=== PATIENT | female | born 1980 | race Caucasian/White ===

== ENCOUNTER → 2023-05-22 15:17 | Outpatient (BNVA) | payer MEDICAID, SELFPAY | PROVIDERS: PCP Obstetrics & Gynecology; Visit Provider Nurse Practitioner Psychiatric/Mental Health | DX: Z03.89 Encounter for observation for other suspected diseases and conditions ruled out (principal); Z79.899 Other long term (current) drug therapy | CPT/HCPCS: 80306 ==

== ENCOUNTER → 2023-07-04 08:04 | Outpatient (BNVA) | payer MEDICAID, SELFPAY | PROVIDERS: PCP Obstetrics & Gynecology; Referring Provider Nurse Practitioner Psychiatric/Mental Health; Visit Provider Internal Medicine Cardiovascular Disease | DX: Z03.89 Encounter for observation for other suspected diseases and conditions ruled out (principal) | CPT/HCPCS: 93005 ==

== ENCOUNTER 2023-08-18 15:47 | Outpatient (CLI) | payer MEDICAID, SELFPAY ==
--- NOTE | 2023-08-18 16:07 | XR_ITS ---
WS: [id number] XR chest 2V* [id number] REASON FOR EXAM: Bronchitits FINDINGS: The heart and the mediastinum are within normal limits. There is calcified granulomatous disease in both hemithoraces. No acute pulmonary parenchymal or pleural abnormality is identified. Mild thoracic scoliosis with mild degenerative spondylosis in the thoracic spine. IMPRESSION: No acute/subacute chest abnormality.
== END 2023-08-18 15:48 | disposition home or self-care (01) ==
LOC: RAD 15:50
PROVIDERS: PCP Obstetrics & Gynecology; Visit Provider Nurse Practitioner Family
DX: J40 Bronchitis, not specified as acute or chronic (principal)
CPT/HCPCS: 71046

== ENCOUNTER 2023-10-16 09:20 | Outpatient (CLI) | payer MEDICAID, SELFPAY ==
--- NOTE | 2023-10-16 09:36 | XRR_ITS ---
PROCEDURE INFORMATION: Exam: XR Right Shoulder Exam date and time: 10/16/2023 9:48 AM Age: 42 years old Clinical indication: Pain; Shoulder; Right; Additional info: Pain in R shoulder TECHNIQUE: Imaging protocol: Radiologic exam of the right shoulder. Views: 2 or more views. COMPARISON: CR XR chest 2V* [id number] 08/18/2023 4:12 PM FINDINGS: Bones/joints: Normal. No fracture or dislocation. No significant arthritic changes. Soft tissues: Normal. XR/XR shoulder RT min 2V* [id number] IMPRESSION: No acute findings.
== END 2023-10-16 09:21 | disposition home or self-care (01) ==
LOC: RAD 09:23
PROVIDERS: PCP Obstetrics & Gynecology; Visit Provider Nurse Practitioner Family
DX: M25.511 Pain in right shoulder (principal)
CPT/HCPCS: 73030

== ENCOUNTER 2023-10-27 11:26 | Outpatient (CLI) | payer MEDICAID, SELFPAY ==
--- NOTE | 2023-10-27 11:31 | MM_ITS ---
WS: [id number] BILATERAL 3D TOMOSYNTHESIS DIGITAL SCREENING MAMMOGRAPHY WITH CAD CLINICAL INFORMATION: SCREENING HISTORY: Screening mammogram. No current complaints. COMPARISON: Baseline TECHNIQUE: Bilateral CC and MLO views. FINDINGS: Scattered fibroglandular densities bilaterally. No suspicious focal mass, asymmetry, calcifications, or architectural distortion. No evidence of malignancy. Incidental punctate calcifications. IMPRESSION: MM/[place] [id number] BI-RADS: 2-Benign FOLLOW UP: 1 Year Follow-up Recommend return to annual screening mammography.
== END 2023-10-27 11:27 | disposition home or self-care (01) ==
LOC: RAD 11:27
PROVIDERS: PCP Obstetrics & Gynecology; Visit Provider Family Medicine
DX: Z12.31 Encounter for screening mammogram for malignant neoplasm of breast (principal)
CPT/HCPCS: 77063; 77067

== ENCOUNTER → 2023-11-07 12:25 | Outpatient (BNVA) | payer MEDICAID, SELFPAY | PROVIDERS: PCP Obstetrics & Gynecology; Visit Provider Internal Medicine | DX: R07.9 Chest pain, unspecified (principal) | CPT/HCPCS: 93005 ==

== ENCOUNTER 2023-11-13 13:08 | Outpatient (CLI) | payer MEDICAID, SELFPAY ==
--- NOTE | 2023-11-13 13:11 | CT_ITS ---
WS: [id number] CT chest wo con [id number] HISTORY: LUNG NODULE TECHNIQUE: Axial imaging performed through the thorax. Coronal and sagittal reformats are submitted. All CT scans at [facility] use at least one of these dose optimization techniques: automated exposure control; mA and/or kV adjustment per patient size (includes targeted exams where dose is mat ched to clinical indication); or iterative reconstruction. CONTRAST: None DLP: 497.71 mGy.cm COMPARISON: 11/05/2014 Lungs and central airway: Micronodule LEFT upper lobe was also present in 2014. No suspicious masses or pneumonia. Pleura: Normal. No pleural effusion. Heart and pericardium: Normal size heart with no pericardial effusion. Mediastinum and jose g: No mediastinum or hilar adenopathy. Vessels: Pulmonary arteries greater diameter than the aorta. Chest wall and lower neck: No soft tissue masses. Upper abdomen: Prior cholecystectomy. Osseous structures: Mild increase in thoracic kyphosis. Mild thoracic spondylosis. IMPRESSION: 1. Stable chest CT since 11/05/2014. Micronodule in the LEFT upper lobe is unchanged. 2. No mass or pneumonia. 3. No adenopathy. 4. Very mild pulmonary hypertension. 5. Prior cholecystectomy.
== END 2023-11-13 13:09 | disposition home or self-care (01) ==
LOC: RAD 13:08
PROVIDERS: PCP Obstetrics & Gynecology; Visit Provider Family Medicine
DX: R91.8 Other nonspecific abnormal finding of lung field (principal); I27.20 Pulmonary hypertension, unspecified
CPT/HCPCS: 71250

== ENCOUNTER → 2023-11-21 10:37 | Outpatient (BNVA) | payer MEDICAID, SELFPAY | PROVIDERS: PCP Obstetrics & Gynecology; Referring Provider Family Medicine; Visit Provider Physician Assistant | DX: M25.511 Pain in right shoulder (principal); M75.41 Impingement syndrome of right shoulder | CPT/HCPCS: 73030 ==

== ENCOUNTER 2023-11-29 11:51 | Outpatient (CLI) | payer MEDICAID, SELFPAY ==
--- NOTE | 2023-11-29 11:55 | USCV_ITS ---
Barber Gilda Age: 43 Gender: F : 1980 Exam Date: 11/29/2023 12:06 Ordering Phys: Santo Eden M.D ([email or web address]) Technologist: Exam Location: [facility] [place] Indication: sob BP: 117 / 72 HR: 148 Rhythm: Sinus Technical Quality: MEASUREMENTS (Male / Female) Normal Values 2D ECHO LV Diastolic Diameter PLAX 3.6 cm 4.2 - 5.9 / 3.9 - 5.3 cm IVS Diastolic Thickness 1.3 cm 0.6 - 1.0 / 0.6 - 0.9 cm IVS Systolic Thickness 1.7 cm LVPW Diastolic Thickness 1.1 cm 0.6 - 1.0 / 0.6 - 0.9 cm LVPW Systolic Thickness 1.5 cm LVOT Diameter 2.0 cm LV Ejection Fraction 2D Teich 58.1 % LV Ejection Fraction MOD 2C 60.5 % LV Ejection Fraction 2C AL 60.7 % LA Diameter 2.9 cm LA Sys Volume AL 37.8 cm cubed LA Sys Volume Index AL 17.7 cm cubed/m squared Aorta at Sinotubular Diameter 2.2 cm IVC Diameter 2.0 cm M-MODE LA Ao Ratio MM 1.3 AV Cusp Separation MM 2.5 cm DOPPLER AV Peak Velocity 114.0 cm/s AV Area Cont Eq vti 2.9 cm squared AV Area Cont Eq pk 3.1 cm squared MV Peak Velocity 95.0 cm/s MV Area PHT 4.7 cm squared Mitral E to A Ratio 1.1 TV Peak Velocity 216.5 cm/s TR Peak Velocity 269.0 cm/s TR Peak Gradient 28.9 mmHg TV Peak E Velocity 89.0 cm/s Right Atrial Pressure 3.0 mmHg Pulmonary Artery Systolic Pressu 31.9 mmHg PV Peak Velocity 88.0 cm/s FINDINGS Left Ventricle Left ventricle is normal in size. LV systolic function is normal with EF of 55 to 60%. No regional wall motion abnormalities are seen. Right Ventricle Normal in size and function Right Atrium Normal in size. Left Atrium Normal in size Mitral Valve Structurally normal mitral valve.Trace mitral regurgitation Aortic Valve Structurally normal aortic valve. No significant stenosis or regurgitation. Tricuspid Valve Mild tricuspid regurgitation. RVSP is normal. Pulmonic Valve Trace pulmonic regurgitation. Pericardium Normal Aorta Normal in size IVC Appears to be normal CONCLUSIONS LV systolic function is normal with EF 55 to 60%. Trace mitral regurgitation. Mild tricuspid regurgitation Trace pulmonic regurgitation. Santo Eden MD (Electronically Signed) Final Date: 13 Dec 2023 13:58 S
[2023-11-29] MEDS: perflutren protein-a microsphr 0.22 mg/mL SDV 3 mL IV (12:38)
== END 2023-11-29 11:52 | disposition home or self-care (01) ==
LOC: RAD 11:51
PROVIDERS: PCP Obstetrics & Gynecology; Visit Provider Internal Medicine
DX: R07.9 Chest pain, unspecified (principal); R06.02 Shortness of breath; I07.1 Rheumatic tricuspid insufficiency
CPT/HCPCS: C8929; Q9956

== ENCOUNTER → 2024-02-27 18:18 | Outpatient (BNVA) | payer MEDICAID, SELFPAY | PROVIDERS: PCP Obstetrics & Gynecology; Visit Provider Emergency Medicine | DX: N39.0 Urinary tract infection, site not specified (principal); R30.9 Painful micturition, unspecified | CPT/HCPCS: 81000; 87086 ==

== ENCOUNTER 2024-12-20 12:37 | Outpatient (CLI) | payer MEDICAID, SELFPAY ==
--- NOTE | 2024-12-20 | MM_ITS ---
WS: [id number] BILATERAL 3D TOMOSYNTHESIS DIGITAL SCREENING MAMMOGRAPHY WITH CAD CLINICAL INFORMATION: ANNUAL SCREENING HISTORY: Screening mammogram. No current complaints. COMPARISON: 2023 TECHNIQUE: Bilateral CC and MLO views. FINDINGS: Scattered fibroglandular densities bilaterally. No suspicious focal mass, asymmetry, calcifications, or architectural distortion. No evidence of malignancy. Incidental punctate calcifications LEFT breast. MM/MM scr BI tomosynthesis [id number] IMPRESSION: DENSITY: There are scattered areas of fibroglandular density. BI-RADS: 2 - Benign. FOLLOW UP: 1 Year Follow-up Recommend return to annual screening mammography.
== END 2024-12-20 12:38 | disposition home or self-care (01) ==
LOC: RAD 12:38
PROVIDERS: PCP Obstetrics & Gynecology; Visit Provider Family Medicine
DX: Z12.31 Encounter for screening mammogram for malignant neoplasm of breast (principal); R92.323 Mammographic fibroglandular density, bilateral breasts; R92.1 Mammographic calcification found on diagnostic imaging of breast
CPT/HCPCS: 77063; 77067

== ENCOUNTER 2025-05-15 14:17 | Emergency (ER) | payer MEDICAID, SELFPAY ==
[2025-05-15 14:18] VITALS: BP 143/86; PULSE 140; RESP 24; TEMP 36.7; O2SAT 100
--- NOTE | 2025-05-15 14:36 | ED_ITS ---
HPI - Arrhythmia/Palpitations 2 General: Chief Complaint: Arrhythmia/Palpitations Stated Complaint: dizzy / high hr/ chest pressure Time Seen by Provider: 05/15/25 14:24 History of Present Illness: Patient is a 44-year-old female with history of sinus tachycardia, anxiety, presents to the emergency room due to chest pressure and palpitations. Patient states this started at noon today. She was sitting on her couch. This is central to left side of her chest without radiation. She feels a synthetic anxiety. She does feel as if she is in palpitations. This has continued through now. Patient had to Dr. Coello this morning. She states that is her typical caffeine intake. No recent cold or illness. No history atrial fibrillation. History of post hysterectomy DVT, according to patient. Associated symptoms: Reports anxiety and nausea; Deny vomiting Related Data Home Medications ?Medication ?Instructions ?Recorded ?Confirmed tirzepatide 15 mg/0.5 mL 10 mg SUBCUT Q7D 02/27/24 subcutaneous pen injector (Deepak) bupropion HCl 450 mg 24 hr tablet, 450 mg PO BEDTIME 1 05/15/25 extended release buspirone 5 mg tablet 5 mg PO BEDTIME 05/15/25 rosuvastatin 40 mg tablet 40 mg PO BEDTIME 05/15/25 Previous Rx's ?Medication ?Instructions ?Recorded diltiazem HCl 180 mg 180 mg PO Q24H #30 caps 04/24 10/15 capsule,extended release 24 hr (Cardizem CD) Allergies Allergy/AdvReac Type Severity Reaction Status Date / Time Penicillins Allergy Unknown Verified 05/06/25 12:06 sumatriptan Allergy Unknown Verified 05/06/25 12:06 Review of Systems 2 General: Reports: 10 or more systems reviewed and unremarkable except in HPI and below Const: Denies: fever(s) or chills Eyes: Denies: change in vision or blurry vision ENMT: Denies: throat pain, nasal obstruction or post nasal drip Card: Reports: chest pain, palpitations, lightheadedness and dyspnea on exertion; Denies: irregular heart rhythm or swelling of feet/ankles Resp: Reports: dyspnea and non-productive cough GI: Reports: nausea; Denies: abdominal pain or vomiting : Denies: flank pain or difficulty voiding Musc: Denies: neck pain or extremity pain Skin/Breast: Denies: rash or pruritus Neuro: Denies: headache(s) or numbness in extremities Psych: Reports: anxiety; Denies: depression Endo: Denies: polyuria or polydipsia PFSH ED 2 PFSH: Social History Smoking and tobacco/nicotine status: never used tobacco/nicotine Physical Exam 2 Const: COMMON NORMALS: no acute distress, average body habitus, patient oriented x3 and no limitations HENMT: COMMON NORMALS: normocephalic, atraumatic, hearing grossly normal bilaterally and TM's normal bilaterally HEAD & SCALP: normocephalic and atraumatic HEAD IMAGES: 1. Small superficial redness TYMPANIC MEMBRANE: TM's normal bilaterally Neck/C-Spine: COMMON NORMALS: full ROM, no lymphadenopathy, supple, no meningeal signs, no JVD and Thyroid normal GENERAL: Yes normal visual inspection, Yes trachea midline, No anterior neck swelling and No lymphadenopathy THYROID: Thyroid normal CAROTIDS: Yes normal carotid upstroke and Yes bounding pulses CERVICAL SPINE: Yes cervical ROM normal and Yes normal cervical lordosis Chest: COMMONS NORMALS: normal inspection of the chest and normal palpation of entire chest wall Resp: COMMON NORMALS: normal respiratory effort, No retractions, No use of accessory muscles, clear to auscultation bilaterally and percussion normal A USCULTATION: clear to auscultation bilaterally PERCUSSION: percussion normal Cardio: COMMON NORMALS: no JVD, regular rhythm, S1 normal heart sound present, S2 normal heart sound present, No gallops present (Cardio), No clicks present (Cardio), No murmurs present (Cardio), No rub (Cardio) and Peripheral pulses 2+ throughout RATE: tachycardic RHYTHM: regular rhythm HEART SOUNDS: S1 normal heart sound present and S2 normal heart sound present PERIPHERAL PULSES: Peripheral pulses 2+ throughout GI: COMMON NORMALS: Normal to inspection, nondistended, normoactive bowel sounds present, Soft to palpation, non-tender and No hepatosplenomegaly present PALPATION: Yes Soft to palpation and Yes No hepatosplenomegaly present : COMMON NORMALS: Yes no CVA tenderness BLADDER/KIDNEY EXAM: Yes no CVA tenderness Back/Pelvis: COMMON NORMALS: no CVA tenderness Extremity: COMMON NORMALS: normal to inspection, full ROM and capillary refill normal Neuro: COMMON NORMALS: patient oriented x3 MENINGEAL SIGNS: Yes no meningeal signs Psych: COMMON NORMALS: mental status grossly normal and Normal thought process present THOUGHT PROCESS: Normal thought process present Course 2 Reevaluation(s): Reevaluation #1: Heart rate still 120s after Cardizem IV push and p.o. Patient remains anxious. Ativan given. Reevaluation #2: Heart rate 110 after Ativan. Vital Signs: Vital signs: Vital Signs Temperature 98.0 F 05/15/25 14:18 Pulse Rate 112 H 05/15/25 16:40 Respiratory Rate 16 05/15/25 16:40 Blood Pressure 112/73 05/15/25 16:40 Pulse Oximetry 100 05/15/25 16:40 Oxygen Delivery Me thod Room Air 05/15/25 14:51 MDM - Arrhythmia/Palpitations Medical Decision Making Patient is a 44-year-old female with history of sinus tachycardia, had abrupt onset of palpitations and chest pressure at noon today. She was at rest when this occurred. This has continued until presentation. She has a history of DVT after hysterectomy. Will check routine labs, cardiac rule out, D-dimer, TSH, magnesium. She will receive Cardizem IV push and p.o. to see if she has improvement of her sinus tachycardia. EKG was reviewed and does not show any ST segment elevation. TSH, D-dimer, magnesium, troponin, electrolytes are all appropriate. CBC indicates normal WBC with higher side hemoglobin at 16.3. 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 Will give 1 L of LR bolus. Her heart score is 0. She is ruled out from pulmonary embolism standpoint. Will treat with 1 L of fluid, and sent home with Cardizem CD, with close follow-up with cardiology. Medical Records I reviewed the patient's medical records. Lab Data I reviewed the patient's lab results. 05/15/25 14:35 05/15/25 14:35 Radiology Impressions Chest X-Ray 05/15/25 14:36 Impression: Negative chest. Laboratory Results WBC 5.19 10^3/uL (3.29-11.43) 05/15/25 14:35 RBC 5.36 10^6/uL (3.85-5.65) 05/15/25 14:35 Hgb 16.30 g/dL (11.27-16.99) 05/15/25 14:35 Hct 45.8 % (36-47) 05/15/25 14:35 MCV 85.4 fl (85-98) 05/15/25 14:35 MCH 30.4 pg (27-33) 05/15/25 14:35 MCHC 35.6 g/dL (30-55) 05/15/25 14:35 RDW 11.9 % (12.1-15.1) L 05/15/25 14:35 Plt Count 237 10^3/cmm (157-399) 05/15/25 14:35 MPV 9.0 fL (7.4-10.4) 05/15/25 14:35 Neut % (Auto) 68.3 % 05/15/25 14:35 Lymph % (Auto) 26.0 % 05/15/25 14:35 Tillman % (Auto) 3.9 % 05/15/25 14:35 Eos % (Auto) 1.2 % 05/15/25 14:35 Baso % (Auto) 0.4 % 05/15/25 14:35 Neut # (Auto) 3.55 10^3/uL (1.8-7.7) 05/15/25 14:35 Lymph # (Auto) 1.4 10^3/uL (0.8-4.8) 05/15/25 14:35 Tillman # (Auto) 0.2 10^3/uL (0.2-0.9) 05/15/25 14:35 Eos # (Auto) 0.1 10^3/uL (0.0-0.8) 05/15/25 14:35 Baso # (Auto) 0.0 10^3/uL (0.0-0.1) 05/15/25 14:35 Nucleated RBC % (auto) 0 % 05/15/25 14:35 Nucleated RBCs # 0.0 /100WBC 05/15/25 14:35 D-Dimer <= 0.27 ug/mLFEU (0-0.59) 05/15/25 14:35 Sodium 140 mmol/L (136-145) 05/15/25 14:35 Potassium 4.0 mmol/L (3.5-5.1) 05/15/25 14:35 Chloride 102 mmol/L (98-107) 05/15/25 14:35 Carbon Dioxide 23 mmol/L (22-29) 05/15/25 14:35 Anion Gap 19.0 (5-19) 05/15/25 14:35 BUN 6 mg/dL (6-20) 05/15/25 14:35 Creatinine 0.7 mg/dL (0.5-0.9) 05/15/25 14:35 GFR Calculation 91.3 mL/min (90-130) 05/15/25 14:35 Glucose 102 mg/dL (65-115) 05/15/25 14:35 Calculated Osmolality 288 mOsm/kg (285-295) 05/15/25 14:35 Calcium 9.5 mg/dL (8.5-10.5) 05/15/25 14:35 Magnesium 2.1 mg/dL (1.7-2.3) 05/15/25 14:35 Total Bilirubin 0.3 mg/dL (0.15-1.2) 05/15/25 14:35 AST 16 U/L (0-32) 05/15/25 14:35 ALT 17 U/L (0-33) 05/15/25 14:35 Alkaline Phosphatase 94 U/L (35-105) 05/15/25 14:35 Troponin T Baseline < 6 ng/L (0-10) 05/15/25 14:35 NT-Pro-B Natriuret Pep < 36 pg/mL (0-125) 05/15/25 14:35 Total Protein 6.5 g/dL (6.6-8.7) L 05/15/25 14:35 Albumin 4.7 g/dL (3.5-5.2) 05/15/25 14:35 Globulin 1.8 g/dL (1.3-4.6) 05/15/25 14:35 TSH 1.60 uIU/mL (0.27-4.20) 05/15/25 14:35 Ethyl Alcohol < 10 mg/dL (0-10) 05/15/25 14:35 All radiology interpretation(s) finalized by discharge EKG Data EKG 1: Interpretation: Sinus tachycardia rate of 140, QTc 410 MS Other EKG comments: Chest X-Ray 05/15/25 14:36 Impression: Negative chest. EKG 2: Interpretation: Sinus tachycardia with rate of 107. No ST segment elevation. QTc 373. Other EKG comments: Chest X-Ray 05/15/25 14:36 Impression: Negative chest. Discharge Plan Discharge Patient Disposition: Home Clinical Impression: Supraventricular tachycardia Condition: Stable Prescriptions: New diltiazem HCl [Cardizem CD] 180 mg capsule,extended release 24hr 180 mg PO Q24H Qty: 30 0RF No Action Mounjaro 15 mg/0.5 mL pen injector 10 mg SUBCUT Q7D buspirone 5 mg tablet 5 mg PO BEDTIME rosuvastatin 40 mg tablet 40 mg PO BEDTIME bupropion HCl 450 mg tablet extended release 24 hr 450 mg PO BEDTIME Discharge Orders: Discharge ED (Routine); Ordered 05/15/25 Ordered By: Rosalia Jones Referrals: Damaris Meraz MD [Physician, Cardiology] - 4-7 days Tatianna Fuchs DO [Primary Care Provider, DIRECTOR OF GIFT PLANNING] Discharge Diet: Low Salt Discharge Activity: Limit activity as instructed Patient Instructions: Supraventricular Tachycardia (ED), DASH Eating Plan (ED), Patient Portal & Emerson Instructions Activity Restrictions/Additional Instructions: - No caffeine - Follow-up with cardiology. Referral was made to Dr. Meraz - Your Cardizem CD was sent to the pharmacy. 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 - Take your blood pressure and heart rate in the morning daily 1 time. Put it on a log in your phone or on paper. Make sure your blood pressure is greater than 110 on the top number before you take your Cardizem CD, and your heart rate is greater than 65. If it is not, wait 3 hours, and repeat this process. - Drink the recommended 60-64 ounces of noncaffeinated beverages daily - Return to ED if this occurs again. Thank you for choosing [facility] for your healthcare needs today. You have been screened and evaluated and felt safe for discharge. Health conditions do change or evolve sometimes and as such it is important that you follow up with your Primary Doctor to be re checked, 3-5 days is a general good time frame for follow up. You are always welcome to return to the ED for re assessment if your symptoms are worsening or you have new concerns Stand Alone Forms: Work/School Release Print Language: Salvadorean Coding Level of Care Code ED Pathology Laboratory Aides Teacher for Heidy Molina
--- NOTE | 2025-05-15 14:36 | XR_ITS ---
WS: [id number] Portable AP upright chest, 05/15/2025 Clinical Data: chest pain Comparison: Two-view chest, 08/18/2023 Findings: No nodules, masses or effusions are seen. The heart is normal. The pulmonary vascularity is not increased. No pneumonia or pneumothorax is seen. Monitor leads are on the chest wall. XR/XR chest 1V portable [id number] Impression: Negative chest.
--- NOTE | 2025-05-15 14:36 | ECG_ITS ---
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 Measurements Intervals [place] Rate: 140 P: 70 [place]: 142 QRS: 90 QRSD: 80 T: 65 QT: 329 QTc: 503 Interpretive Statements SINUS TACHYCARDIA, POSSIBLE ATRIAL FLUTTER LOW QRS VOLTAGE IN PRECORDIAL LEADS [QRS DEFLECTION < 1.0 mV IN CHEST LEADS] NONSPECIFIC ST & T-WAVE ABNORMALITY ABNORMAL RHYTHM ECG Compared to ECG 11/07/2023 12:32:39 T-wave abnormality now present Sinus rhythm no longer present Electronically Signed On 05-16-2025 15:25:05 CDT by Damaris Meraz M.D. [id number]
[2025-05-15 14:40] VITALS: BP 143/86; PULSE 131; RESP 25; O2SAT 100
[2025-05-15 14:48] LABS: Hematocrit 45.8 % (36-47); Hemoglobin 16.30 g/dL (11.27-16.99); Mean Corpuscular HGB Conc 35.6 g/dL (30-55); Mean Corpuscular Hemoglobin 30.4 pg (27-33); Mean Corpuscular Volume 85.4 fl (85-98); Nucleated Red Blood Cells % 0 %; Platelet Count 237 10^3/cmm (157-399); Red Blood Count 5.36 10^6/uL (3.85-5.65); White Blood Count 5.19 10^3/uL (3.29-11.43)
[2025-05-15] MEDS: dilTIAZem 5 mg/mL SDV 5 mL 10 MG IVP (14:50)
[2025-05-15 14:51] VITALS: BP 131/88; PULSE 133; RESP 24; O2SAT 100
[2025-05-15] MEDS: ondansetron hcl ODT 4 mg Tab PO (15:02)
[2025-05-15] MEDS: LORazepam 1 MG/0.5 ML injection IVP (15:02)
[2025-05-15 15:06] LABS: Troponin(5th) Baseline < 6 ng/L (0-10)
[2025-05-15 15:17] LABS: Alanine Aminotransferase 17 U/L (0-33); Albumin Level 4.7 g/dL (3.5-5.2); Alkaline Phosphatase 94 U/L (35-105); Anion Gap 19.0 (5-19); Aspartate Amino Transferase 16 U/L (0-32); Blood Urea Nitrogen 6 mg/dL (6-20); Calcium 9.5 mg/dL (8.5-10.5); Carbon Dioxide 23 mmol/L (22-29); Chloride 102 mmol/L (98-107); Globulin 1.8 g/dL (1.3-4.6); Glucose 102 mg/dL (65-115); Magnesium 2.1 mg/dL (1.7-2.3); NT Pro B Type Natriuretic Pept < 36 pg/mL (0-125); Osmolality Calculated 288 mOsm/kg (285-295); Potassium 4.0 mmol/L (3.5-5.1); Sodium 140 mmol/L (136-145); Thyroid Stimulating Hormone 1.60 uIU/mL (0.27-4.20); Total Protein 6.5 g/dL (6.6-8.7)
[2025-05-15 15:19] LABS: Alcohol Level < 10 mg/dL (0-10)
--- NOTE | 2025-05-15 15:32 | ECG_ITS ---
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 Measurements Intervals [place] Rate: 107 P: 53 [place]: 163 QRS: 82 QRSD: 80 T: 58 QT: 311 QTc: 415 Interpretive Statements SINUS TACHYCARDIA LOW QRS VOLTAGE IN PRECORDIAL LEADS [QRS DEFLECTION < 1.0 mV IN CHEST LEADS] ABNORMAL RHYTHM ECG Compared to ECG 11/05/2014 16:11:46 Low QRS voltage now present Electronically Signed On 05-16-2025 15:27:14 CDT by Damaris Meraz M.D. [id number]
[2025-05-15 16:40] VITALS: BP 112/73; PULSE 112; RESP 16; O2SAT 100
== END 2025-05-15 16:42 | disposition home or self-care (01) ==
PROVIDERS: Emergency Provider Physician Assistant; PCP Family Medicine
DX: I47.10 Supraventricular tachycardia, unspecified (principal)
CPT/HCPCS: 36415; 71045; 80053; 80307; 83735; 83880; 84443; 84484; 85025; 85378; 93005; 96374; 96375; 99285; J2060; J3490; J7120; J9999; Q0162

== ENCOUNTER 2025-05-18 12:25 | Emergency (ER) | payer MEDICAID, SELFPAY ==
--- NOTE | 2025-05-18 12:31 | PC.NURSE ---
called patient for triage--in bathroom at 1230
--- NOTE | 2025-05-18 12:33 | XRR_ITS ---
PROCEDURE INFORMATION: Exam: XR Chest Exam date and time: 05/18/2025 1:55 PM Age: 44 years old Clinical indication: Pain; Chest pressure; Additional info: Cp TECHNIQUE: Imaging protocol: Radiologic exam of the chest. Views: 1 view. COMPARISON: CR XR chest 1V portable [id number] 05/15/2025 2:40 PM FINDINGS: Lungs: Unremarkable. No consolidation. Pleural spaces: Unremarkable. No pleural effusion. No pneumothorax. Heart/Mediastinum: Unremarkable. No cardiomegaly. Bones/joints: Mild degenerative disease of bilateral acromioclavicular joints. XR/XR chest 1V portable [id number] IMPRESSION: No acute cardiopulmonary process.
--- NOTE | 2025-05-18 12:33 | ECG_ITS ---
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1980 Requested By: Jason Leblanc Order Number: [id number] Reading MD: AMBER COLEMAN Measurements Intervals [place] Rate: 120 P: 64 [place]: 174 QRS: 77 QRSD: 83 T: 48 QT: 338 QTc: 479 Interpretive Statements SINUS TACHYCARDIA LOW QRS VOLTAGE IN PRECORDIAL LEADS [QRS DEFLECTION < 1.0 mV IN CHEST LEADS] MINIMAL ST DEPRESSION [0.025+ mV ST DEPRESSION] ABNORMAL RHYTHM ECG Compared to ECG 05/15/2025 14:22:06 ST (T wave) deviation now present T-wave abnormality no longer present Electronically Signed On 05-18-2025 22:24:12 CDT by AMBER COLEMAN [id number]
[2025-05-18 12:37] VITALS: BP 121/80; PULSE 120; RESP 18; TEMP 36.3; O2SAT 100
[2025-05-18 13:02] LABS: Hematocrit 43.6 % (36-47); Hemoglobin 15.10 g/dL (11.27-16.99); Mean Corpuscular HGB Conc 34.6 g/dL (30-55); Mean Corpuscular Hemoglobin 30.6 pg (27-33); Mean Corpuscular Volume 88.3 fl (85-98); Nucleated Red Blood Cells % 0 %; Platelet Count 208 10^3/cmm (157-399); Red Blood Count 4.94 10^6/uL (3.85-5.65); White Blood Count 5.61 10^3/uL (3.29-11.43)
[2025-05-18 13:19] LABS: Troponin(5th) Baseline < 6 ng/L (0-10)
[2025-05-18 13:25] LABS: Alanine Aminotransferase 13 U/L (0-33); Albumin Level 4.5 g/dL (3.5-5.2); Alkaline Phosphatase 87 U/L (35-105); Anion Gap 15.6 (5-19); Aspartate Amino Transferase 14 U/L (0-32); Blood Urea Nitrogen 9 mg/dL (6-20); Calcium 9.5 mg/dL (8.5-10.5); Carbon Dioxide 25 mmol/L (22-29); Chloride 104 mmol/L (98-107); Creatinine Clr Calc Pharmacy 80.4271; Globulin 1.6 g/dL (1.3-4.6); Glucose 104 mg/dL (65-115); Lipase 30 U/L (13-60); Osmolality Calculated 289 mOsm/kg (285-295); Potassium 4.6 mmol/L (3.5-5.1); Sodium 140 mmol/L (136-145); Total Protein 6.1 g/dL (6.6-8.7)
--- NOTE | 2025-05-18 13:51 | W.ED.GENADLT ---
HPI - General Adult General: Chief complaint: General Medical Stated complaint: chest pain Time Seen by Provider: 05/18/25 13:37 History of Present Illness: Patient is 44-year-old female that presents to the emergency room with palpitations. She was here 05/15 and diagnosed with supraventricular tachycardia. Part of the history on that day is her tirzepatide is causing her not to hardly eat. She never had palpitations like she did. She had elevated blood pressure during her stay at that time, improved with Cardizem, laboratory data was benign, and was sent home on Cardizem. Patient is taking Cardizem 180 mg CD x 1, on 05/15, and blood pressure on 05/16, and 05/17 was too low reporting systolic in the 90s, and did not tolerate Cardizem CD. She did take her Cardizem CD approximately 1 hour ago prior to arrival Patient did not eat today, wade, cereal, consumed 40 ounces of noncaffeinated beverages. She has not had any caffeine since she was here. She is following all of her instructions. She has lowered her tirzepatide dose to 7.5 mg weekly to help with the anorexia. She does have a question of her bupropion of 4 and 50 mg titration up, and buspirone added at 5 mg daily has caused the issue. Associated symptoms: Reports chest pain, dyspnea, nausea and palpitations; Deny headache(s), rash or vomiting Related Data Home Medications ?Medication ?Instructions ?Recorded ?Confirmed tirzepatide 15 mg/0.5 mL 10 mg SUBCUT Q7D 02/27/24 05/15/25 subcutaneous pen injector (Deepak) bupropion HCl 450 mg 24 hr tablet, 450 mg PO BEDTIME 05/15/25 05/15/25 extended release buspirone 5 mg tablet 5 mg PO BEDTIME 05/15/25 05/15/25 rosuvastatin 40 mg tablet 40 mg PO BEDTIME 05/15/25 05/15/25 Previous Rx's ?Medication ?Instructions ?Recorded diltiazem HCl 180 mg 180 mg PO Q24H #30 caps 05/15/25 capsule,extended release 24 hr (Cardizem CD) bupropion HCl 300 mg 24 hr tablet, 300 mg PO QAM #30 tabs 05/18/25 extended release (Wellbutrin XL) diltiazem HCl 120 mg 120 mg PO QAM #30 caps 05/18/25 capsule,extended release 24 hr (Cardizem CD) lamotrigine 25 mg tablet (Lamictal) 25 mg PO DAILY 30 days #30 tabs 05/18/25 Allergies Allergy/AdvReac Type Severity Reaction Status Date / Time Penicillins Allergy Unknown Verified 05/06/25 12:06 sumatriptan Allergy Unknown Verified 05/06/25 12:06 Review of Systems General: Reports: 10 or more systems reviewed and unremarkable except in HPI and below Const: Denies: fever(s) or chills Eyes: Denies: change in vision or blurry vision ENMT: Denies: throat pain, nasal obstruction or post nasal drip Card: Reports: chest pain, palpitations, lightheadedness and dyspnea on exertion; Denies: irregular heart rhythm or swelling of feet/ankles Resp: Reports: dyspnea and non-productive cough GI: Reports: nausea; Denies: abdominal pain or vomiting : Denies: flank pain or difficulty voiding Musc: Denies: neck pain or extremity pain Skin/Breast: Denies: rash or pruritus Neuro: Denies: headache(s) or numbness in extremities Psych: Reports: anxiety; Denies: depression Endo: Denies: polyuria or polydipsia PFSH ED PFSH: Social History Smoking and tobacco/nicotine status: never used tobacco/nicotine Physical Exam Const: COMMON NORMALS: no acute distress, average body habitus, patient oriented x3 and no limitations HENMT: COMMON NORMALS: normocephalic, atraumatic, hearing grossly normal bilaterally and TM's normal bilaterally HEAD & SCALP: normocephalic and atraumatic TYMPANIC MEMBRANE: TM's normal bilaterally Neck/C-Spine: COMMON NORMALS: full ROM, no lymphadenopathy, supple, no meningeal signs, no JVD and Thyroid normal GENERAL: Yes normal visual inspection, Yes trachea midline, No anterior neck swelling and No lymphadenopathy THYROID: Thyroid normal CAROTIDS: Yes normal carotid upstroke and Yes bounding pulses CERVICAL SPINE: Yes cervical ROM normal and Yes normal cervical lordosis Chest: COMMONS NORMALS: normal inspection of the chest and normal palpation of entire chest wall Resp: COMMON NORMALS: normal respiratory effort, No retractions, No use of accessory muscles, clear to auscultation bilaterally and percussion normal AUSCULTATION: clear to auscultation bilaterally PERCUSSION: percussion normal Cardio: COMMON NORMALS: no JVD, regular rhythm, S1 normal heart sound present, S2 normal heart sound present, No gallops present (Cardio), No clicks present (Cardio), No murmurs present (Cardio), No rub (Cardio) and Peripheral pulses 2+ throughout RATE: tachycardic RHYTHM: regular rhythm HEART SOUNDS: S1 normal heart sound present and S2 normal heart sound present PERIPHERAL PULSES: Peripheral pulses 2+ throughout GI: COMMON NORMALS: Normal to inspection, nondistended, normoactive bowel sounds present, Soft to palpation, non-tender and No hepatosplenomegaly present PALPATION: Yes Soft to palpation and Yes No hepatosplenomegaly present : COMMON NORMALS: Yes no CVA tenderness BLADDER/KIDNEY EXAM: Yes no CVA tenderness Back/Pelvis: COMMON NORMALS: no CVA tenderness Extremity: COMMON NORMALS: normal to inspection, full ROM and capillary refill normal Neuro: COMMON NORMALS: patient oriented x3 MENINGEAL SIGNS: Yes no meningeal signs Psych: COMMON NORMALS: mental status grossly normal and Normal thought process present THOUGHT PROCESS: Normal thought process present Course Vital Signs: Vital signs: Vital Signs Temperature 97.4 F L 05/18/25 12:37 Pulse Rate 91 05/18/25 15:49 Respiratory Rate 17 05/18/25 15:49 Blood Pressure 132/71 05/18/25 15:49 Pulse Oximetry 98 05/18/25 15:49 Oxygen Delivery Me thod Room Air 05/18/25 14:30 MDM - General Adult Medical Decision Making Patient is a pleasant 44-year-old female with history anxiety. Her SVT causes increasing synthetic anxiety, for which I have reassured her. Initially this started after her tirzepatide was increased, she had anorexia, as well as her anxiety medication was adjusted with Wellbutrin up to 450 mg, and BuSpar added at 5 mg at night. Her primary care physician has adjusted her tirzepatide dose to wean her off. She states she is now eating, she is not consuming any caffeine, and her blood pressure was less the last 2 days where she could not take her Cardizem CD. Discussed all of the things we could do to help her including decrease the Cardizem to 120 mg p.o. daily since she did react well to this on the visit. As well, reduce your Wellbutrin, although it should not be associated with SVT or even QTc back to 300 mg, and add Lamictal in the morning that will help with her anxiety. Her Lamictal can then be titrated if needed. I have also encouraged her to walk-in visit to the mental health facility, and discouraged benzodiazepines due to side effect profile. Patient states understanding all of this, and quite a good patient, and wants to do everything as she is told. She is well ate a breakfast today, and has been taking and noncaffeinated beverages to try to kelly this issue. I do believe that her increasing anxiety is associated with her palpitations that is not her fault, however to get it under control it was multifactorial. We had a long candid discussion, that I hope helps Ms. Blandon with her follow-ups. As well, I do believe it is essential to get her into Dr. Meraz for follow-up and to review all of this information as well. I would consider question of a camp bundle for reinjury with her initial visit, however she seems more controlled except with activity on this visit. Previously, magnesium, and TSH were obtained that were benign. This was not repeated. What made her feel better today was IV fluids. She did take her Cardizem CD 1 her 9 mg just 1 hour prior to arrival since her blood pressure was amicable to do so. I have made a referral to case management as well. All of her questions answered to her satisfaction. Medical Records I reviewed the patient's medical records. Lab Data I reviewed the patient's lab results. 05/18/25 12:54 05/18/25 12:54 Radiology Impressions Chest X-Ray 05/18/25 12:33 IMPRESSION: No acute cardiopulmonary process. Laboratory Results WBC 5.61 10^3/uL (3.29-11.43) 05/18/25 12:54 RBC 4.94 10^6/uL (3.85-5.65) 05/18/25 12:54 Hgb 15.10 g/dL (11.27-16.99) 05/18/25 12:54 Hct 43.6 % (36-47) 05/18/25 12:54 MCV 88.3 fl (85-98) 05/18/25 12:54 MCH 30.6 pg (27-33) 05/18/25 12:54 MCHC 34.6 g/dL (30-55) 05/18/25 12:54 RDW 11.9 % (12.1-15.1) L 05/18/25 12:54 Plt Count 208 10^3/cmm (157-399) 05/18/25 12:54 MPV 9.1 fL (7.4-10.4) 05/18/25 12:54 Neut % (Auto) 73.1 % 05/18/25 12:54 Lymph % (Auto) 21.9 % 05/18/25 12:54 Grant % (Auto) 3.7 % 05/18/25 12:54 Eos % (Auto) 0.7 % 05/18/25 12:54 Baso % (Auto) 0.4 % 05/18/25 12:54 Neut # (Auto) 4.10 10^3/uL (1.8-7.7) 05/18/25 12:54 Lymph # (Auto) 1.2 10^3/uL (0.8-4.8) 05/18/25 12:54 Grant # (Auto) 0.2 10^3/uL (0.2-0.9) 05/18/25 12:54 Eos # (Auto) 0.0 10^3/uL (0.0-0.8) 05/18/25 12:54 Baso # (Auto) 0.0 10^3/uL (0.0-0.1) 05/18/25 12:54 Nucleated RBC % (auto) 0 % 05/18/25 12:54 Nucleated RBCs # 0.0 /100WBC 05/18/25 12:54 Sodium 140 mmol/L (136-145) 05/18/25 12:54 Potassium 4.6 mmol/L (3.5-5.1) 05/18/25 12:54 Chloride 104 mmol/L (98-107) 05/18/25 12:54 Carbon Dioxide 25 mmol/L (22-29) 05/18/25 12:54 Anion Gap 15.6 (5-19) 05/18/25 12:54 BUN 9 mg/dL (6-20) 05/18/25 12:54 Creatinine 0.8 mg/dL (0.5-0.9) 05/18/25 12:54 GFR Calculation 78.3 mL/min (90-130) L 05/18/25 12:54 Glucose 104 mg/dL (65-115) 05/18/25 12:54 Calculated Osmolality 289 mOsm/kg (285-295) 05/18/25 12:54 Calcium 9.5 mg/dL (8.5-10.5) 05/18/25 12:54 Total Bilirubin 0.3 mg/dL (0.15-1.2) 05/18/25 12:54 AST 14 U/L (0-32) 05/18/25 12:54 ALT 13 U/L (0-33) 05/18/25 12:54 Alkaline Phosphatase 87 U/L (35-105) 05/18/25 12:54 Troponin T Baseline < 6 ng/L (0-10) 05/18/25 12:54 Troponin T 120 Minute < 6.0 ng/L (0-10) 05/18/25 14:54 Delta Troponin T 0 ABS# (0-10) 05/18/25 14:54 Total Protein 6.1 g/dL (6.6-8.7) L 05/18/25 12:54 Albumin 4.5 g/dL (3.5-5.2) 05/18/25 12:54 Globulin 1.6 g/dL (1.3-4.6) 05/18/25 12:54 Lipase 30 U/L (13-60) 05/18/25 12:54 All radiology interpretation(s) finalized by discharge Discharge Plan Discharge Patient Disposition: Home Clinical Impression: Sinus tachycardia Condition: Stable Prescriptions: New lamotrigine [Lamictal] 25 mg tablet 25 mg PO DAILY 30 Days Qty: 30 0RF bupropion HCl [Wellbutrin XL] 300 mg tablet extended release 24 hr 300 mg PO QAM Qty: 30 0RF diltiazem HCl [Cardizem CD] 120 mg capsule,extended release 24hr 120 mg PO QAM Qty: 30 0RF No Action Mounjaro 15 mg/0.5 mL pen injector 10 mg SUBCUT Q7D diltiazem HCl [Cardizem CD] 180 mg capsule,extended release 24hr 180 mg PO Q24H Qty: 30 0RF buspirone 5 mg tablet 5 mg PO BEDTIME rosuvastatin 40 mg tablet 40 mg PO BEDTIME bupropion HCl 450 mg tablet extended release 24 hr 450 mg PO BEDTIME Discharge Orders: Discharge ED (Routine); Ordered 05/18/25 Ordered By: Rosalia Jones Referrals: Tatianna Fuchs, [Primary Care Provider, [employer] 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 - Stop your Wellbutrin 450 mg dose. Start your Wellbutrin 300 mg dose. Take this in the morning. Receive refills from your primary regarding this. -Continue your buspirone at bedtime -Start Lamictal 25 mg that was sent to the pharmacy in the morning. Refills through your primary. They can turn this up as well. -Stop your previous dose of Cardizem CD. Your new dose of 120 mg was sent to the pharmacy. You only have to hold this if your blood pressure is less than 100 systolic or your heart rate is less than 65. -Please obtain a hospital follow-up visit with Dr. Meraz from cardiology. I will put in another consultation for urgent follow-up in the next 1-2 weeks. - Please return if you have further issues. We are happy to evaluate you. Thank you for choosing [facility] for your healthcare needs today. You have been screened and evaluated and felt safe for discharge. Health conditions do change or evolve sometimes and as such it is important that you follow up with your Primary Doctor to be re checked, 3-5 days is a general good time frame for follow up. You are always welcome to return to the ED for re assessment if your symptoms are worsening or you have new concerns Print Language: Bangladeshi Coding Level of Care Code ED Back Up Scan Coordinator for Heidy Molina
[2025-05-18 14:10] VITALS: BP 108/76; PULSE 88; RESP 16; O2SAT 100
[2025-05-18 14:30] VITALS: BP 123/85; PULSE 104; RESP 16; O2SAT 100
--- NOTE | 2025-05-18 14:33 | ECG_ITS ---
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
[2025-05-18 15:00] VITALS: BP 114/81; PULSE 101; RESP 16; O2SAT 100
[2025-05-18 15:24] LABS: Troponin 5 2HR < 6.0 ng/L (0-10); Troponin 5 2HR Delta 0 ABS# (0-10)
[2025-05-18 15:30] VITALS: BP 108/76; PULSE 94; RESP 16; O2SAT 100
[2025-05-18 15:49] VITALS: BP 132/71; PULSE 91; RESP 17; O2SAT 98
--- NOTE | 2025-05-19 08:00 | DCPLANNER ---
messaged heart care for er f/u
== END 2025-05-18 16:04 | disposition home or self-care (01) ==
PROVIDERS: Emergency Medicine; Emergency Provider Physician Assistant; PCP Family Medicine
DX: R00.0 Tachycardia, unspecified (principal)
CPT/HCPCS: 36415; 71045; 80053; 83690; 84484; 85025; 93005; 99285; J7120

== ENCOUNTER 2025-06-04 11:43 | Outpatient (CLI) | payer MEDICAID, SELFPAY ==
--- NOTE | 2025-06-04 | ECG_ITS ---
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 Interpretive Statements Findings: The patient exercised on the treadmill using the [place] protocol. The patient's baseline blood pressure was 102/82 mmHg with a resting heart rate of 131 bpm. The patient exercised for a total of 3 minutes and 43 seconds reaching a maximum heart rate of 171 bpm which is 96% of the patient's maximal predicted heart rate. The patient achieved 7 METS. The patient developed some mild dizziness that resolved in recovery. The patient's blood pressure mildly increased to a maximum of 117/75 mmHg with exercise. At the end of recovery the patient's blood pressure was 101/76 mmHg with a heart rate of 104 bpm. the baseline EKG showed sinus tachycardia with a heart rate of [address] depression. No new ST changes or T wave abnormalities during the stress test. No arrhythmias occurred. CONCLUSION: 1. Exercise capacity was significantly below average for age. 2. Heart rate response was appropriate. 3. Blood pressure response was blunted. 4. No symptoms of chest pain during exercise. mild lightheadedness did develop during the stress test which resolved in recovery. 5. Stress EKG negative for ischemia. Electronically Signed On 06-04-2025 19:29:20 OUTREACH ASSOCIATE by Meet Kelly M.D. [email or web address] [email or web address]
[2025-06-04 12:21] VITALS: BMI 25.9
[2025-06-04 12:45] VITALS: BP 101/76; PULSE 104
== END 2025-06-04 11:44 | disposition home or self-care (01) ==
LOC: CDL 11:44
PROVIDERS: PCP Family Medicine; Visit Provider Internal Medicine Cardiovascular Disease
DX: R00.0 Tachycardia, unspecified (principal); R07.9 Chest pain, unspecified
CPT/HCPCS: 93017

== ENCOUNTER 2025-07-03 17:05 | Outpatient (CLI) | payer MEDICAID, SELFPAY ==
--- NOTE | 2025-07-03 17:09 | XR_ITS ---
WS: [id number] XR lumbar spine 2-3V* [id number] REASON FOR EXAM: chronic low back pain FINDINGS: Mild rotatory levoscoliosis and slightly exaggerated lordosis. No significant vertebral body abnormality. Intervertebral disc spaces are intact and well preserved. No spondylolysis. No significant spondylolisthesis. XR/XR lumbar spine 2-3V* [id number] IMPRESSION: Mild alteration of spinal curvatures without other significant abnormality.
== END 2025-07-03 17:06 | disposition home or self-care (01) ==
LOC: RAD 17:07
PROVIDERS: PCP Nurse Practitioner Family; Visit Provider Nurse Practitioner Family
DX: M41.86 Other forms of scoliosis, lumbar region (principal); R10.13 Epigastric pain; G89.29 Other chronic pain
CPT/HCPCS: 72100; 82150; 83690

== ENCOUNTER 2025-07-11 10:52 | Outpatient (CLI) | payer MEDICAID, SELFPAY ==
--- NOTE | 2025-07-11 11:00 | US_ITS ---
WS: [id number] Abdomen ultrasound, 07/11/2025 Clinical Data: abdominal pain, high ferritin Comparison: None. Findings: The pancreas shows no cyst, pseudocyst or evidence of pancreatitis. The liver shows no cysts, masses or dilated intrahepatic ducts. The liver measures 14.2 cm. The main portal vein shows hepatopetal flow and measures 0.8 cm. The liver parenchyma shows normal echotexture. The gallbladder is absent. The common bile duct is 0.2 cm and no intraductal abnormalities are noted. The right kidney is 9.3 cm. No cysts, masses or hydronephrosis is seen. The left kidney is 9.0 cm. No cysts, masses or hydronephrosis is seen. The abdominal aorta is not dilated and the inferior vena cava has normal flow. No vascular abnormalities are seen. The spleen measures 9.9 cm and there are no intrasplenic masses or capsular abnormalities. US/US abdomen complete* [id number] Impression: 1. Negative abdomen ultrasound. 2. Absent gallbladder.
== END 2025-07-11 10:53 | disposition home or self-care (01) ==
LOC: RAD 10:53
PROVIDERS: PCP Nurse Practitioner Family; Visit Provider Nurse Practitioner Family
DX: R10.13 Epigastric pain (principal); G89.29 Other chronic pain; Z90.49 Acquired absence of other specified parts of digestive tract
CPT/HCPCS: 76700